=== PATIENT | female | born 2005 | race African-American/Black ===

== ENCOUNTER 2025-06-14 12:47 | Emergency (ER) | payer OTHER ==
[~2025-06-14] VITALS: Ht 162.6 cm; Wt 59.0 kg
[2025-06-14 13:06] VITALS: O2SAT 100
[2025-06-14 13:35] LABS: BASOPHILS % 0.3 % (0.0-2.0); EOSINOPHILS % 0.2 % (0.0-5.0); HEMATOCRIT. 46.1 % (36.0-48.0); HEMOGLOBIN. 15.7 g/dL (12.0-16.0); LYMPHOCYTES % 19.5 % (20.0-50.0); MEAN PLATELET VOLUME 8.2 fl (7.4-10.4); MONOCYTES % 6.3 % (2.0-8.0); NEUTROPHILS % 73.7 % (40.0-76.0); PLATELET 330 x1000/uL (130-400); RED BLOOD CELL COUNT 5.24 mill/uL (4.2-5.4); RED CELL DISTRIBUTION WIDTH 13.0 % (11.6-14.6)
[2025-06-14] MEDS: ONDANSETRON 4MG ODT PO ONE (13:41)
[2025-06-14] MEDS: HALOPERIDOL LACTATE 5MG/ML VIAL IM ONE (13:41)
[2025-06-14 13:51] LABS: CREATININE 1.0 mg/dL (0.6-1.0); UREA NITROGEN BLOOD 12 mg/dL (9-23)
[2025-06-14 13:54] LABS: ASPARTATE AMINOTRANSFERASE 23 IU/L (<34); BILIRUBIN DIRECT 0.4 mg/dL (<=3.0); BILIRUBIN TOTAL 1.3 mg/dL (0.1-1.0); PROTEIN TOTAL 7.3 g/dL (6.0-8.3)
[2025-06-14] MEDS: SODIUM CHLORIDE 0.9% 1,000 ML IV SCH (15:28)
[2025-06-14] MEDS: KCL 20MEQ/100ML PREMIX 100 ML IV SCH (15:29)
[2025-06-14] MEDS: POTASSIUM CHLORIDE 20MEQ TABLET SR PO SCH (17:04)
[2025-06-14 17:09] VITALS: BP 146/53; PULSE 76; RESP 14; TEMP 37.4; O2SAT 97
== END 2025-06-14 17:10 | disposition home or self-care (01) ==
LOC: ER 12:47
DX: F12.90 Cannabis use, unspecified, uncomplicated (principal); E87.6 Hypokalemia; I10 Essential (primary) hypertension; R10.9 Unspecified abdominal pain; Z87.19 Personal history of other diseases of the digestive system
CPT/HCPCS: 80076; 80048; 83690; 85025; 36415; 96365; 96372; 99284; Q0162; J1630; J3480; Z7610 ×3; A4606

== ENCOUNTER 2025-08-09 13:57 | Emergency (ER) | payer OTHER ==
[~2025-08-09] VITALS: Ht 162.6 cm; Wt 63.0 kg
[2025-08-09 14:02] VITALS: O2SAT 99
[2025-08-09 14:06] VITALS: BP 130/86; PULSE 85; RESP 18; TEMP 36.9; O2SAT 99
== END 2025-08-09 16:05 | disposition left against medical advice (07) ==
LOC: ER 13:57
DX: R10.9 Unspecified abdominal pain (principal); R11.2 Nausea with vomiting, unspecified; Z53.21 Procedure and treatment not carried out due to patient leaving prior to being seen by health care provider

== ENCOUNTER 2025-08-09 18:00 | Emergency (ER) | payer OTHER ==
[~2025-08-09] VITALS: Ht 162.6 cm; Wt 63.0 kg
[2025-08-09 18:09] VITALS: BP 128/74; TEMP 36.9; O2SAT 100
[2025-08-09 18:17] VITALS: PULSE 82; RESP 18; O2SAT 99
== END 2025-08-09 20:35 | disposition left against medical advice (07) ==
LOC: ER 18:00
DX: R11.2 Nausea with vomiting, unspecified (principal); Z53.21 Procedure and treatment not carried out due to patient leaving prior to being seen by health care provider

== ENCOUNTER 2025-11-03 21:26 | Inpatient (IN) | payer OTHER ==
[~2025-11-03] VITALS: Ht 162.6 cm; Wt 59.1 kg
[~2025-11-03 21:26] MED LIST: ALPR1TAB2 MT
[2025-11-03 21:40] VITALS: O2SAT 99
[2025-11-03 22:22] LABS: HEMATOCRIT. 44.2 % (36.0-48.0); HEMOGLOBIN. 14.6 g/dL (12.0-16.0); MEAN PLATELET VOLUME 8.2 fl (7.4-10.4); PLATELET 342 x1000/uL (130-400); RED BLOOD CELL COUNT 4.93 mill/uL (4.2-5.4); RED CELL DISTRIBUTION WIDTH 13.6 % (11.6-14.6)
[2025-11-03] MEDS: SODIUM CHLORIDE 0.9% 1,000 ML IV ONE (22:24)
[2025-11-03 22:38] LABS: CREATININE 0.9 mg/dL (0.6-1.0); UREA NITROGEN BLOOD 9 mg/dL (9-23)
[2025-11-03 22:39] LABS: PROTEIN TOTAL 7.7 g/dL (6.0-8.3)
[2025-11-03 22:40] LABS: ASPARTATE AMINOTRANSFERASE 37 IU/L (<34); BILIRUBIN DIRECT 0.2 mg/dL (<=3.0); BILIRUBIN TOTAL 0.6 mg/dL (0.1-1.0)
[2025-11-03] MEDS: ONDANSETRON HCL 4MG/2ML INJ IV ONE (22:42)
[2025-11-03 22:49] LABS: LYMPHOCYTES % MANUAL 6.0 % (20.0-60.0); MONOCYTES % MANUAL 5.0 % (2.0-8.0); NEUTROPHILS % MANUAL 89.0 % (45.0-75.0); PLATELET ESTIMATE NORMAL
[2025-11-04 01:01] LABS: HCG SCREEN NEGATIVE
[2025-11-04] MEDS: SODIUM CHLORIDE 0.9% 500 ML IV ONE (01:51)
[2025-11-04] MEDS: HALOPERIDOL LACTATE 5MG/ML VIAL IM ONE (01:51)
[2025-11-04] MEDS ORDERED: ACETAMINOPHEN 325MG TABLET PO PRN (02:15)
[2025-11-04] MEDS ORDERED: ACETAMINOPHEN 650MG/20.3ML UDC GT PRN (02:15)
[2025-11-04] MEDS ORDERED: KETOROLAC 30MG/ML VIAL IV PRN (02:15)
[2025-11-04] MEDS ORDERED: IPRATROPIUM/ALBUTEROL 0.5-3(2.5)MG/3ML NEB HHN PRN (02:15)
[2025-11-04] MEDS ORDERED: ONDANSETRON HCL 4MG/2ML INJ IV PRN (02:15)
[2025-11-04] MEDS ORDERED: LORAZEPAM 2MG/ML UD SYRINGE IV PRN (02:15)
[2025-11-04 02:56] LABS: PHOSPHORUS 2.8 mg/dL (2.5-4.9)
[2025-11-04 03:00] VITALS: BP 122/58; PULSE 99; RESP 20; TEMP 36.8; O2SAT 99
[2025-11-04] MEDS: DEXT 5%/0.9% NACL 1,000 ML IV SCH (03:09)
[2025-11-04] MEDS: KCL 20MEQ/100ML PREMIX 100 ML IV NR (03:09)
[2025-11-04] MEDS: BLOOD SUGAR DIAGNOSTIC STRIP TEST SCH (04:25)
[2025-11-04 04:50] VITALS: BP 122/59; PULSE 99; RESP 20; TEMP 36.8072
[2025-11-04 05:45] LABS: TRIGLYCERIDE 39.0 mg/dL (0-150)
[2025-11-04 05:46] LABS: LDL CHOLESTEROL 79.0 mg/dL (5-100)
[2025-11-04] MEDS ORDERED: PANTOPRAZOLE SODIUM 40 MG/VIAL IV SCH (06:00)
== END 2025-11-04 05:30 | disposition left against medical advice (07) | DRG 249 ==
LOC: ER 21:26 → 4WST 11-04 01:16 → EDBEDREQTM 11-04 01:18 → EDBEDREQ 11-04 01:18 → EDBEDREQDT 11-04 01:18 → ENRESERV 11-04 02:04
PROVIDERS: ADMIT Internal Medicine; ATTEND Internal Medicine
DX: R11.15 Cyclical vomiting syndrome unrelated to migraine (principal); E86.0 Dehydration; E87.6 Hypokalemia; R11.16 Cannabis hyperemesis syndrome; F41.9 Anxiety disorder, unspecified; Z53.29 Procedure and treatment not carried out because of patient's decision for other reasons
CPT/HCPCS: 36415; 80048; 80061; 80076; 80320; 82962; 83605; 83735; 83930; 84100; 84145; 84703; 85025; 99285; A4606; J1630; J2405; J3480; J7030; G0480